=== PATIENT | female | born 1960 | race Caucasian/White ===

== ENCOUNTER 2016-12-20 20:11 | Emergency (ER) | payer OTHER ==
[~2016-12-20] VITALS: Ht 149.9 cm; Wt 50.4 kg
--- NOTE | ~2016-12-20 | EKG ---
[place] [address] [facility] [place] [employer] [address] ELECTROCARDIOGRAM REPORT Name: ADIELNICK Room #: [facility] Mishra#: [id number] Admission: 12/20/16 Attend Phys: Discharge: 12/20/16 Date of : 56 Report #: [id number] THIS REPORT FOR: //name// [facility] ED Test Date: 2016-12-20 Test Time: 20:20:58 Pat Name: NICK CHUN Department: Room: Gender: F Survey Rodman: JACK : 1960 Requested By: Chris Dubose Order Number: [id number] MD: Jack Erickson Measurements Intervals [place] Rate: 76 P: 82 MS: 123 QRS: 83 QRSD: 92 T: 76 QT: 412 QTc: 464 Interpretive Statements Sinus rhythm Baseline wander in lead(s) II No previous ECG available for comparison Electronically Signed On 12-21-2016 13:45:41 [employer]PERVIS[employer] by Jack Erickson [email or web address] <ELECTRONICALLY SIGNED> By: Jack Erickson MD, [facility] 12/21/16 1345 19 19 Jack Erickson MD, FACC /EPI
[2016-12-20] MEDS ORDERED: VENTOLIN HFA 1818 GM INH ×2 (20:39→22:00)
[2016-12-20] MEDS ORDERED: ALBUTEROL2.5 MG/0.5 INH (20:39)
[2016-12-20] MEDS ORDERED: SYMBICORT80 MCG/4.1 INH (20:39)
[2016-12-20 21:08] LABS: ABSOLUTE NEUTROPHILS 7.6 thou/uL (1.4-8.2); BASOPHILS 0.3 % (0.0-2.0); EOSINOPHILS 1.1 % (0.0-3.0); HEMATOCRIT 43.6 % (37.0-47.0); HEMOGLOBIN 14.7 gm/dL (12.0-15.0); LYMPHOCYTES 32.7 % (24.0-44.0); MCH 29.7 pg (26.0-34.0); MCHC 33.7 % (28.0-37.0); MCV 88.1 fL (80.0-100.0); MONOCYTES 7.9 % (1.0-8.0); PLATELET COUNT 259 thou/uL (150-400); RBC 4.95 mil/uL (4.20-5.00); RDW 13.5 % (10.5-14.5); WBC 13.1 thou/uL (4.0-11.0)
[2016-12-20 21:09] LABS: MANUAL DIFF NO
[2016-12-20 21:21] LABS: SODIUM 137 mmol/L (136-145)
[2016-12-20 21:22] LABS: ANION GAP 11 mmol/L (7-16); BUN 29 mg/dL (7-18); CALCIUM 9.2 mg/dL (8.5-10.1); CHLORIDE 101 mmol/L (98-107); CO2 25 mmol/L (21-32); GLUCOSE 98 mg/dL (70-99); POTASSIUM 4.6 mmol/L (3.5-5.1)
[2016-12-20 21:30] LABS: TROPONIN-I < 0.04 ng/mL (<0.04-0.07)
[2016-12-20] MEDS ORDERED: PROVENTIL HFA6.7 G1 INH (22:00)
[2016-12-20] MEDS ORDERED: ZPAK PO (22:00)
[2016-12-20] MEDS ORDERED: PREDNISONE 20 M20 MG PO (22:00)
[2016-12-20 22:26] VITALS: BP 123/60
== END 2016-12-20 22:27 | disposition home or self-care (01) ==
LOC: ER 20:11
PROVIDERS: Physician Assistant
DX: J44.1 Chronic obstructive pulmonary disease with (acute) exacerbation (principal); D72.829 Elevated white blood cell count, unspecified; R06.02 Shortness of breath; F17.210 Nicotine dependence, cigarettes, uncomplicated; Z86.14 Personal history of Methicillin resistant Staphylococcus aureus infection

== ENCOUNTER 2018-08-13 14:56 | Emergency (ER) | payer OTHER ==
[~2018-08-13] VITALS: Ht 149.9 cm; Wt 53.1 kg
--- NOTE | ~2018-08-13 | EKG ---
[address] [address] ELECTROCARDIOGRAM REPORT Name: NICK CHUN Room #: DEP Tad#: [id number] Admission: 08/13/18 Attend Phys: Discharge: 08/13/18 Date of : 56 Report #: [id number] THIS REPORT FOR: //name// [facility] ED Test Date: 2018-08-13 Test Time: 15:25:33 Pat Name: NICK CHUN Department: Room: Gender: F Director Of [employer]: JANELL : 1960 Requested By: Teresa Villanueva Order Number: [id number] MD: Samir Verduzco Measurements Intervals [place] Rate: 77 P: 79 NV: 132 QRS: 74 QRSD: 101 T: 45 QT: 405 QTc: 459 Interpretive Statements Sinus rhythm Compared to ECG 12/20/2016 20:20:58 No significant changes Electronically Signed On 08-17-2018 17:04:00 CDT by Samir Verduzco [email or web address] <ELECTRONICALLY SIGNED> By: Samir Verduzco MD 08/17/18 1704 1525 1525 Samir Verduzco MD /JOSEFINA
[~2018-08-13 14:56] MED LIST: ALBUTEROL2.5 MG/0.5 INH; PREDNISONE 20 M20 MG PO; PROVENTIL HFA6.7 G1 INH; SYMBICORT80 MCG/4.1 INH; VENTOLIN HFA 1818 GM INH; ZPAK PO
[2018-08-13 15:35] LABS: ABSOLUTE NEUTROPHILS 5.3 thou/uL (1.4-8.2); BASOPHILS 0.7 % (0.0-2.0); EOSINOPHILS 7.7 % (0.0-3.0); HEMATOCRIT 42.7 % (37.0-47.0); LYMPHOCYTES 31.6 % (24.0-44.0); MCH 31.6 pg (26.0-34.0); MCHC 35.2 g/dL (28.0-37.0); MCV 89.9 fL (80.0-100.0); MONOCYTES 6.2 % (1.0-8.0); PLATELET COUNT 226 thou/uL (150-400); POLYS 53.8 % (36.0-66.0); RBC 4.75 mil/uL (4.20-5.00); RDW 13.1 % (10.5-14.5); WBC 9.8 thou/uL (4.0-11.0)
[2018-08-13 15:45] LABS: ANION GAP 11 mmol/L (7-16); BUN 13 mg/dL (7-18); CALCIUM 9.4 mg/dL (8.5-10.1); CHLORIDE 106 mmol/L (98-107); CO2 24 mmol/L (21-32); CREATININE 0.9 mg/dL (0.6-1.0); GLUCOSE 106 mg/dL (74-106); POTASSIUM 3.4 mmol/L (3.5-5.1); SODIUM 141 mmol/L (136-145)
[2018-08-13 15:54] LABS: ALBUMIN 3.6 g/dL (3.4-5.0); LIPASE 117 U/L (73-393); SGOT 16 U/L (15-37); SGPT 20 U/L (30-65); TOTAL BILIRUBIN 0.4 mg/dL (<0.1-1.0); TROPONIN-I <0.06 ng/mL (<0.06)
[2018-08-13] MEDS ORDERED: BENTYL 10 MG CA10 M1 PO (17:28)
[2018-08-13] MEDS ORDERED: CIPRO500 MG PO (17:30)
[2018-08-13] MEDS ORDERED: FLAGYL500 MG PO (17:30)
[2018-08-13 17:53] VITALS: BP 152/81
== END 2018-08-13 17:54 | disposition home or self-care (01) ==
LOC: ER 14:56
PROVIDERS: Student in an Organized Health Care Education/Training Program
DX: K58.9 Irritable bowel syndrome, unspecified (principal); R11.2 Nausea with vomiting, unspecified; F17.210 Nicotine dependence, cigarettes, uncomplicated; J44.9 Chronic obstructive pulmonary disease, unspecified